=== PATIENT | male | born 1980 | race Caucasian/White ===

== ENCOUNTER 2020-08-06 15:07 | Outpatient (CLI) | payer BC | END 2020-08-06 15:08 | disposition home or self-care (01) | LOC: CSHCT 15:07 | PROVIDERS: ATTEND Physician Assistant | DX: G43.009 Migraine without aura, not intractable, without status migrainosus (principal); I69.398 Other sequelae of cerebral infarction; G93.89 Other specified disorders of brain | CPT/HCPCS: 70450 ==

== ENCOUNTER 2022-03-13 13:40 | Outpatient (CLI) | payer BC | END 2022-03-13 13:41 | disposition home or self-care (01) | LOC: CSHMRI 13:40 | PROVIDERS: ATTEND Family Medicine | DX: G43.009 Migraine without aura, not intractable, without status migrainosus (principal); I69.30 Unspecified sequelae of cerebral infarction; G44.209 Tension-type headache, unspecified, not intractable; R42 Dizziness and giddiness | CPT/HCPCS: 70544 ==